=== PATIENT | female | born 1995 | race Caucasian/White ===

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

== ENCOUNTER 2019-08-16 05:40 | Inpatient (IN) | payer OTHER ==
--- NOTE | 2019-08-15 19:44 | P.HPOB ---
History of Present Illness H&P Date: 08/15/19 Chief Complaint: Induction of labor This is a 24 y.o. female, 2, para 1, with an estimated date of confinement of 08/22/2019, estimated gestational age of 39-1/7 weeks, who presents for induction of labor. She complains of irregular contractions and pressure. course has been uncomplicated. labs: GC/Chlamydia/trich-neg Hepatitis B surface antigen-neg RPR-NR Rubella-immune Blood type-A neg Antibody screen-neg HIV-NR Hemoglobin-12.8 Random glucose-74 1 hr. GTT-129 Rhogam given at 29 weeks GBS-neg OB Hx: . Hx 1 vaginal delivery. [employer] Hx: Hx GC & chlamydia-treated Social Hx: . Works part-time. Review of Systems Constitutional: Denies chills, Denies fever Eyes: denies blurred vision, denies pain Ears, nose, mouth and throat: Denies headache, Denies sore throat Cardiovascular: Denies chest pain, Denies shortness of breath Respiratory: Denies cough Gastrointestinal: Reports abdominal pain (irreg. contractions) Genitourinary: Reports pelvic pain, Reports Musculoskeletal: Reports low back pain Integumentary: Denies pruritus, Denies rash Neurological: Denies numbness, Denies weakness Past Medical History Past Medical History: No Reported History Additional Past Medical History / Comment(s): OB history: This is her first and she had care with Dr Roldan since 11 weeks. A neg, abs neg, Rub low immunity, HEp B neg, HIV NR, GBS neg. Abnormal 1hr, normal 3 hr GTT. History of Any Multi-Drug Resistant Organisms: None Reported Past Surgical History: No Surgical Hx Reported Past Anesthesia/Blood Transfusion Reactions: No Reported Reaction Past Psychological History: Anxiety Smoking Status: Never smoker Past Alcohol Use History: Occasional Past Drug Use History: None Reported - Past Family History Mother Family Medical History: CVA/TIA, Diabetes Mellitus, Thyroid Disorder Medications and Allergies Home Medications Medication Instructions Recorded Confirmed Type Pwh707/Iron/FA/O3/Dha/Epa/Fish 1 each PO 08/15/19 History [ Multi-Dha Softgel] Allergies Allergy/AdvReac Type Severity Reaction Status Date / Time No Known Allergies Allergy Verified 10/09/17 21:04 Exam Osteopathic Statement: *. No significant issues noted on an osteopathic structural exam other than those noted in the History and Physical/Consult. HEENT: within normal limits Heart: regular rate and rhythm Lungs: clear to auscultation bilaterally Abdomen: , non-tender Cervix: 1.5 cm/60%/-1. heart tones: 140's by doppler Extremities: neg. Afia's Assessment and Plan (1) 39 weeks gestation of Status: Acute Code(s): Z3A.39 - 39 WEEKS GESTATION OF SNOMED Code(s): 27479114 Plan: Admission for induction of labor. Expectant management. Epidural anesthesia if desired.
[2019-08-16] MEDS ORDERED: TERBUTALINE 1 MG/ML VIAL SQ PRN (05:51)
[2019-08-16] MEDS ORDERED: OXYTOCIN 10 UNIT/ML 1 ML VIAL IM PRN (05:51)
[2019-08-16] MEDS ORDERED: CARBOPROST TROMETHAMINE 250 MCG/ML 1 ML AMP IM PRN (05:51)
[2019-08-16] MEDS ORDERED: LIDOCAINE 0.5% (PF) 5 MG/ML (50 ML SDV) SQ PRN (05:51)
[2019-08-16] MEDS ORDERED: LIDOCAINE 1% 20 ML VIAL (10MG/ML) FOR IV START INTRADERMA PRN (05:51)
[2019-08-16] MEDS ORDERED: LACTATED RINGERS 1,000 ML IV SCH (05:51)
[2019-08-16] MEDS ORDERED: OXYTOCIN 30 UNITS/500 ML NS 30 UNIT in SALINE 1 500ML.BAG IV SCH (05:51)
[2019-08-16 06:38] LABS: HCT 32.4 % (34.0-46.0); HGB 10.3 gm/dL (11.4-16.0); Hypochromasia Marked; MCH 24.9 pg (25.0-35.0); MCHC 31.7 g/dL (31.0-37.0); MCV 78.5 fL (80.0-100.0); Mean Platelet Volume 9.1; Platelet Count 222 k/uL (150-450); Poikilocytosis Slight; RBC 4.12 m/uL (3.80-5.40); RDW 13.8 % (11.5-15.5)
[2019-08-16 07:01] LABS: Eosinophils # (M) 0.07 k/uL (0-0.7); Lymphocytes # (M) 2.45 k/uL (1.0-4.8); Monocytes # (M) 0.21 k/uL (0-1.0); Neutrophils # (M) 4.27 k/uL (1.3-7.7); Neutrophils % (M) 61 %; Nucleated Red Blood Cells 0 /100 WBC (0-0); Poikilocytosis (M) Present; Polychromasia Present; Total Cells Counted 100
[2019-08-16] MEDS ORDERED: BUTORPHANOL 1 MG/ML 1 ML VIAL IV PRN (10:19)
--- NOTE | 2019-08-16 12:29 | P.PROBDLV ---
Vaginal Delivery Note - . Vaginal Delivery Note: The patient progressed to complete dilation after oxytocin induction of labor and artificial rupture of membranes with thin meconium noted. She did receive 1 dose of Stadol while in labor. Once reaching complete, she began pushing. 's head came to a crown. With one further push, the 's head delivered across the perineum followed by the anterior shoulder. Nose and mouth were bulb suctioned at the perineum. With one remaining push, the remainder the infant easily delivered and was placed on mother's abdomen. Cord was clamped and cut and infant was taken to warmer for evaluation. A viable male infant is noted with scores of 8 at 1 minute and 8 at 5 minutes and infant weight of 8 lbs. 3 oz. Placenta delivered shortly thereafter, intact, with a three-vessel cord. Uterus initially contracted fairly well after oxytocin was given and uter ine massage was carried out. A gloved hand was placed within the uterine cavity and there was noted to be a small placental piece that was removed with a gloved hand. Uterus did contract again well and no further tissue was palpated. Inspection of the perineum revealed bilateral periurethral abrasions that were noted to be hemostatic. There was a small first-degree perineal laceration. This area was anesthetized with 1% lidocaine and then sutured with 3-0 Vicryl suture in a running locked stitch. Estimated blood loss is approximately 150 mL's. Both mother and infant are in stable condition.
[2019-08-16] MEDS ORDERED: SIMETHICONE 80 MG CHEWABLE PO PRN (12:41)
[2019-08-16] MEDS ORDERED: diphenhydrAMINE 50 MG/ML 1 ML VIAL IVP PRN ×2 (12:41)
[2019-08-16] MEDS ORDERED: HYDROCORTISONE 2.5% RECTAL CREAM 30 GM TUBE RECTAL PRN (12:41)
[2019-08-16] MEDS ORDERED: diphenhydrAMINE 50 MG CAP PO PRN (12:41)
[2019-08-16] MEDS ORDERED: BENZOCAINE/MENTHOL SPRAY 1 GM/SPRAY AEROSOL TOPICAL PRN (12:41)
[2019-08-16] MEDS ORDERED: WITCH HAZEL 1 EACH MED..PAD TOPICAL PRN (12:41)
[2019-08-16] MEDS ORDERED: diphenhydrAMINE 25 MG CAP PO PRN (12:41)
[2019-08-16] MEDS ORDERED: LANOLIN CREAM 5 GM TUBE TOPICAL PRN (12:41)
[2019-08-16] MEDS ORDERED: ZOLPIDEM 5 MG TAB PO PRN (12:41)
[2019-08-16] MEDS ORDERED: ACETAMINOPHEN TAB 325 MG TAB PO PRN (12:41)
[2019-08-16] MEDS ORDERED: OXYTOCIN 20 UNITS/1000 ML NS 1,000 ML IV SCH (12:45)
[2019-08-16] MEDS: IBUPROFEN 600 MG TAB PO PRN (12:53)
[2019-08-16] MEDS: METHYLERGONOVINE 0.2 MG/ML 1 ML AMP IM PRN ×2 (12:54→14:32)
--- NOTE | 2019-08-16 13:34 | P.PN ---
Progress Note - Text Progress Note Date: 08/16/19 I was called back into see the patient approximately an hour after delivery. Her nurse stated that every time she would rub fundus, she would express clots. She did give Methergine approximately 20 minutes ago. After performing quantitative blood loss estimation, she determine that the blood loss was over 800 mL at this point. I came in and examined the patient. Upon massaging the fundus, more clots were expressed. I placed a gloved hand completely within the uterine cavity and expressed approximately 150-200 mL of dark blood clots. I felt no further placental tissue. Uterus did firm up fairly well at this point. Will monitor closely at this point. Patient is aware to notify her nurse if she starts feeling dizzy or lightheaded or starts to bleed heavily.
[2019-08-16 14:44] LABS: Basophils % (A) 0 %; Eosinophils % (A) 0 %; HCT 32.3 % (34.0-46.0); HGB 9.9 gm/dL (11.4-16.0); Hypochromasia Moderate; Lymphocytes # (A) 0.9 k/uL (1.0-4.8); Lymphocytes % (A) 7 %; MCH 24.4 pg (25.0-35.0); MCHC 30.8 g/dL (31.0-37.0); MCV 79.4 fL (80.0-100.0); Monocytes # (A) 0.5 k/uL (0-1.0); Monocytes % (A) 4 %; Neutrophils # (A) 11.3 k/uL (1.3-7.7); Neutrophils % (A) 87 %; Platelet Count 199 k/uL (150-450); Poikilocytosis Slight; RBC 4.07 m/uL (3.80-5.40); RDW 14.1 % (11.5-15.5)
[2019-08-16] MEDS: SENNOSIDES-DOCUSATE SODIUM 1 EACH TAB PO SCH (20:42)
[2019-08-16] MEDS ORDERED: Rhogam IMMUNE GLOBULIN 1,500 UNIT/1 ML IM ONE (22:35)
[2019-08-17 05:34] VITALS: TEMP 97.6
[2019-08-17 06:54] LABS: Basophils % (A) 0 %; Eosinophils # (A) 0.1 k/uL (0-0.7); Eosinophils % (A) 1 %; HCT 28.6 % (34.0-46.0); HGB 8.8 gm/dL (11.4-16.0); Hypochromasia Marked; Lymphocytes # (A) 1.3 k/uL (1.0-4.8); Lymphocytes % (A) 13 %; MCH 24.3 pg (25.0-35.0); MCHC 30.7 g/dL (31.0-37.0); MCV 79.4 fL (80.0-100.0); Mean Platelet Volume 8.9; Monocytes # (A) 0.4 k/uL (0-1.0); Monocytes % (A) 4 %; Neutrophils # (A) 7.7 k/uL (1.3-7.7); Neutrophils % (A) 78 %; Platelet Count 188 k/uL (150-450); Poikilocytosis Slight; RDW 13.8 % (11.5-15.5); WBC 9.8 k/uL (3.8-10.6)
[2019-08-17 07:37] VITALS: BP 106/59; PULSE 98; RESP 12
[2019-08-17] MEDS: IBUPROFEN 600 MG TAB PO PRN (07:46)
[2019-08-17] MEDS: SENNOSIDES-DOCUSATE SODIUM 1 EACH TAB PO SCH (07:47)
--- NOTE | 2019-08-17 08:24 | P.DS ---
Providers Date of admission: 08/16/19 05:40 Expected date of discharge: 08/17/19 Attending physician: Johana Roldan Primary care physician: Stated None - Discharge Diagnosis(es) (1) 39 weeks gestation of Current Visit: No Status: Acute Hospital Course: This is a 24-year-old female 2 para 1 at 39-2/7 weeks who presented for induction of labor. She underwent oxytocin induction of labor and delivered vaginally a viable male with scores of 8 at 1 minute and 8 at 5 minutes, and infant weight of 8 lbs. 3 oz. Her course was initially complicated by some uterine atony. A fairly large amount of blood clot was expressed from the intrauterine cavity area she was given Methergine 2 times. Shortly after this her uterus did contract well and her bleeding was minimal. She denies any lightheadedness or dizziness this morning. Vital signs are stable. Abdomen is soft with fundus firm and nontender. Extremities show negative Homans. Impression is status post vaginal delivery day #1. Plan is to discharge home later today. Routine instructions are given. She will be given a prescription for ibuprofen. She is bottle feeding. She is advised to call the office if she has any further questions or concerns prior to her primary in time. She is encouraged to continue taking her vitamins. Procedures: Oxytocin induction of labor Spontaneous vaginal delivery of a viable male on 08/16/2019 Patient Condition at Discharge: Stable Plan - Discharge Summary New Discharge Prescriptions: New Ibuprofen [Motrin] 600 mg PO Q6HR PRN #60 tab PRN Reason: Mild Pain Or Fever >= 100.5 No Action Klj274/Iron/FA/O3/Dha/Epa/Fish [ Multi-Dha Softgel] 1 each PO DAILY Discharge Medication List Mxx989/Iron/FA/O3/Dha/Epa/Fish [ Multi-Dha Softgel] 1 each PO DAILY 08/15/19 [History] Ibuprofen [Motrin] 600 mg PO Q6HR PRN #60 tab 08/17/19 [Rx] Follow up Appointment(s)/Referral(s): Johana Roldan DO [Doctor of Osteopathic Medicine] - 6 Weeks Activity/Diet/Wound Care/Special Instructions: Instructions 1. Do not begin any exercise program for 3 weeks. 2. Do not resume sexual relations for 3 weeks or longer if uncomfortable. 3. You may take tub baths or showers at any time. 4. You may use tampons if desired after 3 weeks. 5. Keep the area of episiotomy (stitches) clean and dry. 6. If you are not nursing, wear a good fitting, supportive bra during the day and limit fluid intake for at least 1 week to prevent breast engorgement. 7. Call the office, [phone], within the next week to make appointment for your 6 week checkup if it has not already been made. 8. Report any of the following occurrences to the doctor promptly: a. Heavy, excessive bleeding b. Chills, fever c. Burning or frequency of urination d. Pain or redness and breasts if nursing e. Increasing pain or swelling in episiotomy (stitches). In addition to the above instructions, the following additional should be followed: 1. No heavy lifting or straining (exercising) until after 6 week checkup. 2. Keep abdominal incision clean and dry: You may wear a dressing if more comfortable. 3. Make office appointment for 10 days after going home or as instructed by her doctor. Discharge Disposition: HOME SELF-CARE
== END 2019-08-17 12:30 | disposition home or self-care (01) | DRG 806 ==
LOC: 4FBP 05:40
PROVIDERS: ADMIT Obstetrics & Gynecology; ATTEND Obstetrics & Gynecology
PROC: 0HQ9XZZ Repair Perineum Skin, External Approach (ICD-10-PCS; principal; 2019-08-16)
PROC: 10E0XZZ Delivery of Products of Conception, External Approach (ICD-10-PCS; principal; 2019-08-16)
PROC: 3E0234Z Introduction of Serum, Toxoid and Vaccine into Muscle, Percutaneous Approach (ICD-10-PCS; principal; 2019-08-16)
PROC: 3E033VJ Introduction of Other Hormone into Peripheral Vein, Percutaneous Approach (ICD-10-PCS; principal; 2019-08-16)
PROC: 10907ZC Drainage of Amniotic Fluid, Therapeutic from Products of Conception, Via Natural or Artificial Opening (ICD-10-PCS; principal; 2019-08-16)
PROC: 10D17Z9 Manual Extraction of Products of Conception, Retained, Via Natural or Artificial Opening (ICD-10-PCS; principal; 2019-08-16)
DX: O77.0 Labor and delivery complicated by meconium in amniotic fluid (principal); O72.1 Other immediate postpartum hemorrhage; Z37.0 Single live birth; O70.0 First degree perineal laceration during delivery; O26.893 Other specified pregnancy related conditions, third trimester; Z67.11 Type A blood, Rh negative; Z3A.39 39 weeks gestation of pregnancy; Z79.899 Other long term (current) drug therapy; Z86.59 Personal history of other mental and behavioral disorders; Z83.3 Family history of diabetes mellitus; Z83.49 Family history of other endocrine, nutritional and metabolic diseases; Z82.3 Family history of stroke
CPT/HCPCS: 85025; 85461; 86850; 86870; 86880; 86900; 86901

== ENCOUNTER → 2022-06-05 | Outpatient (CLI) | payer OTHER ==
--- NOTE | 2022-06-05 16:06 | US ---
EXAMINATION TYPE: Transabdominal DATE OF EXAM: 06/05/2022 3:54 PM COMPARISON: NONE CLINICAL HISTORY: Z36.89 ENCOUNTER FOR OTHER SPECIFIED SCR. Viability. . EXAM PERFORMED: Transvaginal (TV) and Transabdominal (TA) EXAM MEASUREMENTS: GESTATIONAL AGE / DATING Physician Established: Not yet established. Dates by LMP: (9 weeks/0 days) EDC: 01/08/2023 Dates by First Scan: This is first scan Dates by Current Scan for: (7 weeks/6 days) EDC: 01/16/2023 by CRL. No heart tones seen. Gestational sac measures 7 weeks 0 days. MATERNAL ANATOMY Uterus: 13.1 x 7.1 x 6.0 cm. Right Ovary: 3.4 x 1.9 x 1.4 cm. Left Ovary: 7.3 x 5.8 x 5.1 cm.Appears enlarged. Septated anechoic area seen: 6.2 x 4.3 x 4.4 cm. Post CDS / Adnexa: Prominent vessels seen within bilateral adnexa. Free fluid seen in CDS. Presence of free fluid: Free fluid seen in Cul de sac. Presence of corpus luteal cyst:? Septated anechoic area seen within left ovary as mentioned above. Presence of subchorionic bleed: No GESTATION / SURVEY CRL: 1.49 cm (7 weeks/6 days) MSD: 2.34 cm (7 weeks/0 days) Yolk Sac (normal less than 6mm): 4.4 mm Heart Rate: Not seen Rhythm: -- IUP: CRL seen, no heart tones seen Date of LMP: 04/03/2022 Beta HcG (if available): Not available IMPRESSION: 1. Gestational age is 7 weeks 6 days based on crown-rump length and 7 weeks 0 days based on mean sac diameter. Cardiac activity is not identified. Dating is 2 weeks behind dating by last menstrual perio d of 9 weeks 0 days. Correlate with beta hCG. Intrauterine demise suspected.
== END | disposition home or self-care (01) ==
LOC: RADUSWWP 15:10
PROVIDERS: ATTEND Obstetrics & Gynecology
DX: Z36.89 Encounter for other specified antenatal screening (principal); Z3A.01 Less than 8 weeks gestation of pregnancy
CPT/HCPCS: 76801; 76817

== ENCOUNTER 2024-12-09 00:57 | Inpatient (IN) | payer BC ==
[2024-12-09] MEDS ORDERED: METHYLERGONOVINE 0.2 MG/ML 1 ML AMP IM PRN (01:30)
[2024-12-09] MEDS ORDERED: miSOPROStoL 200 MCG TAB PO PRN (01:30)
[2024-12-09] MEDS ORDERED: LIDOCAINE 0.5% (PF) 5 MG/ML (50 ML SDV) SQ PRN (01:30)
[2024-12-09] MEDS ORDERED: miSOPROStoL 200 MCG TAB RECTAL PRN (01:30)
[2024-12-09] MEDS ORDERED: TRANEXAMIC 1,000 MG/100ML-NACL 1,000 MG in EMPTY BAG 1 BAG IV PRN (01:30)
[2024-12-09] MEDS ORDERED: OXYTOCIN 10 UNIT/ML 1 ML VIAL IM PRN (01:30)
[2024-12-09] MEDS ORDERED: CARBOPROST TROMETHAMINE 250 MCG/ML 1 ML AMP IM PRN (01:30)
[2024-12-09] MEDS ORDERED: TERBUTALINE 1 MG/ML VIAL SQ PRN (01:30)
[2024-12-09] MEDS: LACTATED RINGERS 1,000 ML IV SCH (01:30)
[2024-12-09 01:52] LABS: Glucose,Whole Blood 132 mg/dL (70-110)
[2024-12-09] MEDS: PENICILLIN G POTASSIUM 5,000,000 UNIT in SODIUM CHLORIDE 0.9% 100 ML IVPB ONE (01:59)
[2024-12-09 02:03] LABS: Basophils # (A) 0.02 10*3/uL (0.00-0.10); Basophils % (A) 0.3 %; Eosinophils # (A) 0.13 10*3/uL (0.04-0.35); Eosinophils % (A) 2.1 %; HCT 29.5 % (37.2-46.3); HGB 9.2 g/dL (12.0-15.0); Lymphocytes # (A) 1.75 10*3/uL (0.90-5.00); Lymphocytes % (A) 28.8 %; MCH 25.3 pg (27.0-32.0); MCHC 31.2 g/dL (32.0-37.0); Mean Platelet Volume 10.7 fL (9.5-12.2); Monocytes # (A) 0.57 10*3/uL (0.20-1.00); Monocytes % (A) 9.4 %; Neutrophils # (A) 3.57 10*3/uL (1.80-7.70); Neutrophils % (A) 58.9 %; Platelet Count 235 10*3/uL (140-440); RBC 3.64 10*6/uL (4.10-5.20); RDW 14.1 % (11.5-14.5); WBC 6.07 10*3/uL (4.50-10.00)
[2024-12-09] MEDS: PENICILLIN G POTASSIUM 2,500,000 UNIT in SODIUM CHLORIDE 0.9% 100 ML IVPB SCH (05:40)
[2024-12-09] MEDS: OXYTOCIN 30 UNITS/500 ML NS 30 UNIT in SALINE 1 500ML.BAG IV SCH (05:45)
[2024-12-09] MEDS: BUTORPHANOL 1 MG/ML 1 ML VIAL IV PRN (08:01)
--- NOTE | 2024-12-09 11:03 | P.HPOB ---
History of Present Illness H&P Date: 12/09/24 Chief Complaint: 37 and 1 sevenths weeks, Spontaneous rupture of membranes, labor The patient is a 29-year-old 5 para 2-0-2-2 through triage at 37 and 1 sevenths weeks by last menstrual period and confirmed by second trimester ultrasound with documented spontaneous rupture of membranes for clear fluid. Her has been complicated only by diagnosis of gestational diabetes. She has had excellent blood sugar control and reassuring testing on a weekly basis from 32 weeks. On labor and delivery, all signs are reassuring with a category 1 heart rate tracing. Group B strep status is unknown at this time/pending. Obstetrical history: 5 para 2-0-2-2 with 2 term vaginal deliveries without complications. Current statistics are listed in history of present illness. EDC of 12/29/2024 was established by last menstrual period and confirmed by second trimester ultrasound. Laboratory workup demonstrates a blood type of a negative with a negative antibody screen. Rubella status is immune. The remainder of the laboratory workup is within normal limits. And followed by an abnormal 3-hour glucose tolerance test making the diagnosis of gestational diabetes. Group B strep status is pending. Gynecologic history: Unremarkable with no history of any infections to include STDs. Review of Systems Review of systems is confined to history of present illness. Past Medical History Past Medical History: No Reported History Additional Past Medical History / Comment(s): Low iron with first History of Any Multi-Drug Resistant Organisms: None Reported Past Surgical History: No Surgical Hx Reported Past Anesthesia/Blood Transfusion Reactions: No Reported Reaction Past Psychological History: No Psychological Hx Reported Smoking Status: Never smoker Past Alcohol Use History: None Reported Past Drug Use History: None Reported - Past Family History Mother Family Medical History: CVA/TIA, Diabetes Mellitus, Thyroid Disorder Medications and Allergies Home Medications Medication Instructions Recorded Confirmed Type Pedi Multivit No.25/Folic Acid 2 tab PO DAILY 12/09/24 12/09/24 History [Flintstones Multivit Chew Tab] Allergies Allergy/AdvReac Type Severity Reaction Status Date / Time No Known Allergies Allergy Verified 08/16/19 05:51 Exam Intake and Output 12/08/24 12/09/24 12/09/24 22:59 06:59 14:59 Other: # Voids 2 Weight 70.307 kg In general, this is a well-developed, well-nourished white female in some discomfort as she is in labor. Her heart has a regular rhythm and rate without murmur. Her lungs are clear to auscultation bilaterally in all ball. Her abdomen is gravid, nondistended, has normal active bowel sounds, is soft, nontender, and without any palpable masses aside from the uterine fundus. Her extremities are without any cyanosis, clubbing, or edema and are nontender to palpation bilaterally. Digital cervical examination demonstrates her cervix to be approximately 7 cm dilated, 80 to 90% effaced, with the vertex and presentation at -2 station. Spontaneous rupture of membranes has been conf irmed. Results Result Diagrams: 12/09/24 01:52 Abnormal Lab Results - Last 24 Hours (Table) 12/09/24 12/09/24 Range/Units 01:50 01:52 RBC 3.64 L (4.10-5.20) 10*6/uL Hgb 9.2 L (12.0-15.0) g/dL Hct 29.5 L (37.2-46.3) % MCH 25.3 L (27.0-32.0) pg MCHC 31.2 L (32.0-37.0) g/dL POC Glucose (mg/dL) 132 H (70-110) mg/dL Assessment and Plan (1) Active labor at term Current Visit: No Status: Acute Code(s): RGO1504 - SNOMED Code(s): 05261511 (2) Spontaneous rupture of membranes Current Visit: No Status: Resolved Code(s): PAX7014 - SNOMED Code(s): 989463944 Plan: Patient has been admitted for active management of labor. Pitocin augmentation has been started. She is declining analgesia at this time. She is a good candidate for either IV or epidural analgesia if she chooses. She will have jaime se maternal and surveillance and expectant management will be practiced.
[2024-12-09] MEDS ORDERED: SIMETHICONE 80 MG CHEWABLE PO PRN (12:17)
[2024-12-09] MEDS ORDERED: diphenhydrAMINE 50 MG/ML 1 ML VIAL IVP PRN ×2 (12:17)
[2024-12-09] MEDS ORDERED: LANOLIN CREAM 1 GM TUBE TOPICAL PRN (12:17)
[2024-12-09] MEDS ORDERED: ACETAMINOPHEN TAB 500 MG TAB PO PRN (12:17)
[2024-12-09] MEDS ORDERED: diphenhydrAMINE 25 MG CAP PO PRN (12:17)
[2024-12-09] MEDS ORDERED: HYDROCORTISONE 2.5% RECTAL CREAM 30 GM TUBE RECTAL PRN (12:17)
[2024-12-09] MEDS ORDERED: BENZOCAINE/MENTHOL SPRAY 1 GM/SPRAY AEROSOL TOPICAL PRN (12:17)
[2024-12-09] MEDS ORDERED: ZOLPIDEM 5 MG TAB PO PRN (12:17)
[2024-12-09] MEDS ORDERED: diphenhydrAMINE 50 MG CAP PO PRN (12:17)
--- NOTE | 2024-12-09 12:22 | P.PROBDLV ---
Vaginal Delivery Note - . Vaginal Delivery Note: The patient is a 29-year-old 5 para 2-0-2-2 admitted at 37 and 1 sevenths weeks by good dating parameters. She is admitted with documented spontaneous rupture of membranes of clear fluid and with all signs reassuring, category 1 heart rate tracing. She is Rh- and received RhoGAM at 28 weeks. Her has otherwise been complicated by gestational diabetes with good sugar control and reassuring testing weekly after 32 weeks. Group B strep status was not determined/pending. As a result, she had antibiotic prophylaxis started. She ultimately had Pitocin augmentation started as well. She made steady progress through the active phase of labor to complete and then pushed over the course of 1 contraction to a normal spontaneous vaginal delivery of a viable 6 pound 7 ounce baby girl with Apgars of 9 at 1 minute and 9 at 5 minutes delivered in the direct occiput anterior position. There was a loose nuchal cord x 1 reduced following delivery of the . The placenta was delivered spontaneously, intact, and grossly normal with a grossly normal three-vessel cord inserted approximately 6 cm from the margin of the placental disc. There were no significant lacerations of the perineum, vagina, or cervix. Estimated blood loss for the case was approximately 250 mL. There were no complications. All sponge, instrument, and needle counts were correct. Both mother and are resting comfortably in recovery.
[2024-12-09] MEDS ORDERED: OXYTOCIN 30 UNITS/500 ML NS 30 UNIT in SALINE 1 500ML.BAG IV SCH (12:30)
[2024-12-09] MEDS: IBUPROFEN 800 MG TAB PO PRN (14:28)
[2024-12-09] MEDS: Rhogam IMMUNE GLOBULIN 1,500 UNIT/1 ML IM ONE (18:02)
[2024-12-09] MEDS: SENNOSIDES-DOCUSATE SODIUM 1 EACH TAB PO SCH (20:59)
[2024-12-10 05:10] LABS: Basophils # (A) 0.04 10*3/uL (0.00-0.10); Basophils % (A) 0.4 %; Eosinophils # (A) 0.22 10*3/uL (0.04-0.35); Eosinophils % (A) 2.4 %; HCT 25.2 % (37.2-46.3); Lymphocytes # (A) 2.76 10*3/uL (0.90-5.00); Lymphocytes % (A) 30.6 %; MCHC 30.2 g/dL (32.0-37.0); MCV 82.9 fL (80.0-97.0); Mean Platelet Volume 10.5 fL (9.5-12.2); Monocytes # (A) 0.93 10*3/uL (0.20-1.00); Monocytes % (A) 10.3 %; Neutrophils # (A) 5.03 10*3/uL (1.80-7.70); Neutrophils % (A) 55.7 %; Platelet Count 193 10*3/uL (140-440); RBC 3.04 10*6/uL (4.10-5.20); RDW 14.2 % (11.5-14.5); WBC 9.03 10*3/uL (4.50-10.00)
[2024-12-10 05:22] LABS: HGB 7.6 g/dL (12.0-15.0)
[2024-12-10 08:38] VITALS: BP 110/74; PULSE 69; RESP 18; TEMP 97.9
--- NOTE | 2024-12-10 09:40 | P.DS ---
Providers Date of admission: 12/09/24 01:17 Expected date of discharge: 12/10/24 Attending physician: Celestino Lieberman Primary care physician: Stated None Hospital Course: 29 year old now PPD#1 s/p after SROM. Patient doing well this morning and desires discharge home. The patient is doing well this morning and had no acute events overnight. She has no complaints this morning. She reports minimal lochia, passing flatus, voiding without difficulty, ambulating, and eating/drinking without nausea or vomiting. doing well at bedside, bottle feeding going well. She denies chest pain, shortness of breathing, fevers, or ch ills overnight. She denies pain or swelling in the legs. restrictions are reviewed with the patient including pelvic rest for 6 weeks. The patient is encouraged to call the office if she experiences any heavy bleeding, foul- smelling discharge, breast complaints, or any if she has any other concerns. She will follow up in the office with Dr. Lieberman in 6 weeks for exam. All questions are answered. Patient Condition at Discharge: Good Plan - Discharge Summary New Discharge Prescriptions: New Docusate [Colace] 100 mg PO BID PRN #60 capsule PRN Reason: Constipation Ferrous Sulfate [Iron (65 MG Elemental)] 325 mg PO DAILY #30 tab Ibuprofen [Motrin] 600 mg PO Q6HR PRN #30 tab PRN Reason: Mild Pain (Scale 1 To 3) Acetaminophen Tab [Tylenol] 650 mg PO Q6H PRN #30 tab PRN Reason: Mild Pain (Scale 1 To 3) No Action Pedi Multivit No.25/Folic Acid [Flintstones Multivit Chew Tab] 2 tab PO DAILY Discharge Medication List Pedi Multivit No.25/Folic Acid [Flintstones Multivit Chew Tab] 2 tab PO DAILY 12/09/24 [History] Acetaminophen Tab [Tylenol] 650 mg PO Q6H PRN #30 tab 12/10/24 [Rx] Docusate [Colace] 100 mg PO BID PRN #60 capsule 12/10/24 [Rx] Ferrous Sulfate [Iron (65 MG Elemental)] 325 mg PO DAILY #30 tab 12/10/24 [Rx] Ibuprofen [Motrin] 600 mg PO Q6HR PRN #30 tab 12/10/24 [Rx] Follow up Appointment(s)/Referral(s): Celestino Lieberman MD [STAFF PHYSICIAN] - 01/19/25 1:45 pm Activity/Diet/Wound Care/Special Instructions: Instructions 1. Do not begin any exercise program for 3 weeks. 2. Do not resume sexual relations for 6 weeks or longer if uncomfortable. 3. You may take tub baths or showers at any time. 4. You may use tampons if desired after 6 weeks. 5. Keep any areas repaired with stitches clean and dry. 6. If you are not nursing, wear a good fitting, supportive bra during the day and limit fluid intake for at least 1 week to prevent breast engorgement. 7. Call the office, , within the next week to make appointment for your 6 week checkup if it has not already been made. 8. Report any of the following occurrences to the doctor promptly: a. Heavy, excessive bleeding b. Chills, fever c. Burning or frequency of urination d. Pain or redness and breasts if nursing e. Increasing pain or swelling of vulva (stitches). In addition to the above instructions, the following additional should be followed: 1. No heavy lifting or straining (exercising) until after 6 week checkup. 2. Keep abdominal incision clean and dry: You may wear a dressing if more comfortable. 3. Make office appointment for 2 weeks after delivery date. Discharge Disposition: HOME SELF-CARE
== END 2024-12-10 13:00 | disposition home or self-care (01) | DRG 807 ==
LOC: FBPOP 00:57 → 4FBP 01:17
PROVIDERS: ADMIT Obstetrics & Gynecology; ATTEND Obstetrics & Gynecology
PROC: 10E0XZZ Delivery of Products of Conception, External Approach (ICD-10-PCS; principal; 2024-12-09)
DX: O24.429 Gestational diabetes mellitus in childbirth, unspecified control (principal); Z37.0 Single live birth; O69.81X0 Labor and delivery complicated by cord around neck, without compression, not applicable or unspecified; Z3A.37 37 weeks gestation of pregnancy; Z83.3 Family history of diabetes mellitus
CPT/HCPCS: 59025; 84112; 85025; 85461; 86850; 86870; 86900; 86901; 99213